=== PATIENT | female | born 1990 | race Hispanic/Latino ===

== ENCOUNTER 2021-04-14 10:23 | Emergency (ER) | payer OTHER ==
--- OUTSIDE RECORDS SUMMARY | 2021-04-14 10:26 | XMS REPORT | Continuity of Care Document ---
:1990 Author Organization [facility] t Address [address] [place] [address] Care Team Providers Name Role Phone DAYDAY, JANNA Primary Care Physician Unavailable PATRICK Attending Clinician Unavailable TAMAR Attending Clinician Unavailable Kike MASTERSON Attending Clinician Unavailable Ijeoma GA Attending Clinician Unavailable Tamar YO Attending Clinician DAYDAY, JANNA Attending Clinician Unavailable ANUSHKA Attending Clinician Unavailable Campos ABEL Attending Clinician Unavailable ELEN Attending Clinician Unavailable ELEN Attending Clinician Unavailable PATRICK Admitting Clinician Unavailable JANNA NAYLOR Admitting Clinician Unavailable TAMAR Admitting Clinician Unavailable Payers Payer Name Policy Type Policy Number Effective Date Expiration Date S andrew [employer] CHO[employer] POS [id number] 2018 00:00:00 II Problems This patient has no known problems. Allergies, Adverse Reactions, Alerts Allergy Allergy Status Severity Reaction(s) Onset Inactive Treating Comm ents Source Name Type Date Date Clinician NO KNOWN Drug Active [facility] ALLERGIE Class ity of S [facility] Medications This patient has no known medications. Procedures This patient has no known procedures. Encounters Start End Encounter Admission Attending Care Care Encounter Source Date/Time Date/Time Type Type Clinicians Facility Department ID 2020-12-26 Outpatient LENA NGUYEN [facility] [id number] Univers 23:43:27 JULIO CESAR eda [facility] 2020-12-[address] [facility] [id number] Univers 23:42:30 ity [facility] 2020-12-24 Outpatient P [facility] [id number] Univers 18:17:26 ity [facility] 2021-01-12 2021-01-12 Outpatient R TAMAR, [facility] [id number] Univers 08:30:00 08:30:00 NICCI [id number] ity [facility] 2021-01-12 2021-01-12 [facility] [id number] Univers 08:30:00 08:30:00 NICCI [facility] 2020-10-19 2020-10-19 [facility] [id number] Univers 13:00:00 13:00:00 JULIO CESAR [id number] [facility] 2020-07-14 2020-07-[address] [facility] [id number] Univers 11:00:00 11:00:00 [id number] [facility] 2020-07-14 2020-07-14 [facility] [id number] Univers 11:00:00 11:00:00 ARGENTINA [facility] 2020-07-08 2020-07-[address] [facility] [id number] Univers 13:30:00 13:30:00 JULIO CESAR [facility] 2020-07-08 2020-07-[address] [facility] [id number] Univers 10:00:00 10:00:00 JULIO CESAR [id number] [facility] 2020-06-30 2020-06-[address] [facility] [id number] Univers 09:00:00 09:00:00 [id number] ity [facility] 2020-06-30 2020-06-[address] [facility] [id number] Univers 09:00:00 [facility]-06[facility] [facility] [id number] Univers 09:00:00 09:00:00 [id number] ity [facility] 2020-06-04 2020-06-[address] [facility] [id number] Univers 08:15:00 08:15:00 [id number] ity [facility] 2020-06-04 2020-06-[address] [facility] [id number] Univers 08:15:00 08:15:00 [facility] [facility] 2020-05-26 2020-05-[address] [facility] [id number] Univers 11:00:00 11:00:00 [id number] ity [facility] 2020-05-19 2020-05-[address] [facility] [id number] Univers 11:00:00 11:00:00 [id number] [facility] 2020-05-13 2020-05-13 [facility] [id number] Univers 13:30:00 13:30:00 RASHEEDA [facility] 2020-05-13 2020-05-[address] [facility] [id number] Univers 10:15:00 10:15:00 JULIO CESAR [id number] [facility] 2020-05-13 2020-05-13 [facility] [id number] Univers 10:15:00 10:15:00 JULIO CESAR [facility] 2020-04-23 2020-04-[address] [facility] [id number] Univers 13:00:00 13:00:00 [id number] [facility] 2020-04-23 2020-04-[address] [facility] [id number] Univers 13:00:00 13:00:00 RASHEEDA [facility] 2020-04-15 2020-04-[address] [facility] [id number] Univers 09:45:00 09:45:00 JULIO CESAR [id number] [facility] 2020-04-15 2020-04-15 [facility] [id number] Univers 09:45:00 09:45:00 JULIO CESAR [facility] 2020-01-13 2020-01-13 [facility] [id number] 09:41:05 10:13:01 Visit Nicci Lopez [id number] Ivone [id number] abdielmo [id number] [address] 2020-01-13 2020-01-[address] [facility] [id number] Univers 09:30:00 09:30:00 NICCI [id number] [facility] 2020-01-13 2020-01-[address] [facility] [id number] Univers 09:30:00 09:30:00 NICCI [facility] 2019-09-05 2019-09-[address] [facility] [id number] Univers 08:20:00 08:20:00 [facility] 2019-07-12 2019-07-[address] [facility] [id number] Univers 14:45:00 14:45:00 NICCI [id number] [facility] 2019-07-12 2019-07-[address] [facility] [id number] Univers 14:45:00 14:45:00 NICCI [facility] 2019-07-09 2019-07-[address] [facility] [id number] Univers 14:00:00 14:00:00 NICCI [id number] [facility] 2019-07-09 2019-07-[address] [facility] [id number] Univers 14:00:00 14:00:00 NICCI [facility] 2019-06-24 2019-06-[address] [facility] [id number] Univers 10:30:00 10:30:00 [facility] 2019-06-14 2019-06-[address] [facility] [id number] Univers 10:00:00 10:00:00 [id number] [facility] 2019-06-14 2019-06-14 Outpatient R BRADEN NAYLOR [facility] [id number] Univers 10:00:00 10:00:00 ity [facility] 2019-06-11 2019-06-11 Outpatient R BRADEN NAYLOR [facility] [id number] Univers 13:30:00 13:30:00 [id number] ity [facility] 2019-06-11 2019-06-11 Outpatient R BRADEN NAYLOR [facility] [id number] Univers 13:30:00 13:30:00 ity [facility] 2019-06-03 2019-06-[address] [facility] [id number] Univers 11:15:00 11:15:00 NICCI ity [facility] 2019-06-03 2019-06-[address] [facility] [id number] Univers 11:15:00 11:15:00 NICCI [facility] 2019-05-22 2019-05-22 Outpatient R BRADEN NAY[facility] [facility] [id number] Univers 15:45:00 15:45:00 [id number] [facility] 2019-05-22 2019-05-22 Outpatient R BRADEN NAY[facility] [id number] Univers 15:45:00 15:45:00 ity [facility] 2019-05-20 2019-05-20 Outpatient R BRADEN NAYLOR [facility] [id number] Univers 09:15:00 09:15:00 [id number] [facility] 2019-05-20 2019-05-20 Outpatient R BRADEN NAY[facility]OR [facility] [id number] Univers 09:15:00 09:15:00 ity [facility] 2019-05-06 2019-05-[address] [facility] [id number] Univers 11:15:00 11:15:00 NICCI [facility] 2019-05-06 2019-05-[address] [facility] [id number] Univers 11:15:00 11:15:00 NICCI [facility] 2019-04-26 2019-04-[address] [facility] [id number] Univers 13:00:00 13:00:00 ity [facility] 2019-04-22 2019-04-22 Outpatient R BRADEN NAYLOR [facility] [id number] Univers 15:30:00 15:30:00 ity [facility] 2019-03-25 2019-03-[address] [facility] [id number] Univers 10:45:00 11:29:55 NICCI [facility] 2019-03-06 2019-03-[address] [facility] [id number] Univers 11:00:00 11:00:00 VIOLETA ity o [facility] 2019-03-01 2019-03-[address] [facility] [id number] Univers 15:00:00 16:05:36 SENDDUSTIN [facility] 2019-02-25 2019-02-25 Outpatient R BRADEN NAYLOR [facility] [id number] Univers 13:45:00 14:14:42 ity [facility] 2019-01-28 2019-01-[address] [facility] [id number] Univers 09:45:00 11:20:09 NICCI [facility] 2019-01-22 2019-01-[address] [facility] [id number] Univers 14:00:00 14:24:59 ity [facility] 2018-12-27 2018-12-27 Outpatient R BRADEN NAYLOR [facility] [id number] Univers 11:30:00 12:21:33 ity [facility] 2018-12-26 2018-12-[address] [facility] [id number] Univers 07:25:06 23:59:00 NICCI [facility] 2018-12-21 2018-12-21 Outpatient R BRADEN NAYLOR [facility] [id number] Univers 15:30:00 16:16:39 ity [facility] 2018-12-14 2018-12-14 Outpatient P FARIBA MYRICK [facility] [id number] Univers 13:00:00 14:02:22 [facility] 2018-12-07 2018-12-07 [facility] [id number] Univers 07:30:00 07:30:00 NICCI ity [facility] 2018-12-03 2018-12-03 Outpatient Karina [facility] [id number] Univers 07:45:00 07:45:00 [facility] 2018-11-29 2018-11-29 Outpatient Karina NAYLOR BRADEN [facility] [id number] Univers 11:30:00 12:35:52 [facility] 2018-11-16 2018-11-[address] [facility] [id number] Univers 10:57:38 23:59:00 [facility] 2018-10-31 2018-10-31 Outpatient Karina [facility] [id number] Univers 14:00:00 15:17:13 [facility] Results This patient has no known results.
[2021-04-14 11:09] LABS: Absolute Lymphocytes (CBC) 1.9 K/uL (0.7-4.9); Lymphocytes % 21.8 % (15.3-44.8); MPV 8.4 fL (7.6-11.3)
[2021-04-14 11:10] LABS: Urine Blood 3+ (Negative); Urine Glucose Negative (Negative); Urine Protein Trace (Negative); Urine Specific Gravity 1.025 (1.005-1.030); Urine pH 6.5 (5.0-7.0)
[2021-04-14 11:40] LABS: Potassium 3.6 mmol/L (3.5-5.1)
--- NOTE | 2021-04-14 13:13 | RAD REPORT ---
EXAM DESCRIPTION: US - 1St Trimest Single 1St Fetus - 04/14/2021 12:46 pm CLINICAL HISTORY: A spotting since last night COMPARISON: No comparisons FINDINGS: Single IUP identified. heart rate measured at 165 beats/min. The gestational sac tk sures 3.4 cm. pole identified. The crown-rump length measures 1.6 cm which is consistent with 8 weeks 0 day. Small subchorionic hemorrhage is present. This occupies less than 25% of the surface ar ea of the gestational sac. Both ovaries were visualized. The right ovary measures 2.6 x 1.6 x 3.1 cm with volume of 6.7 cc. The left ovary measures 3.6 x 2.3 x 3.3 cm with volume of 14.7 cc. Both ovarie s have vascular flow. IMPRESSION: Single viable IUP with positive heart tones measuring 8 week 2 day by CRL with ZEKE of 11/22/2021. Small subchorionic hemorrhage which is typically of little clinical significance. Can reassess on follow-up examinations.
[2021-04-14 13:42] LABS: Urine Specific Gravity/Preg 1.025 (1.005-1.030)
--- NOTE | 2021-04-14 13:44 | EDPHYS ---
Physician Documentation [facility] Name: Antoinette White Age: 30 yrs Sex: Female : 1990 Arrival Date: 04/14/2021 Time: 10:25 Bed 20 Private MD: ED Physician Noah Gibbons HPI: 04/14 13:51 This 30 yrs old Female presents to ER via Ambulatory with complaints of kdr Vaginal Bleeding, + Preg <12wks. 13:51 The patient presents to the emergency department with vaginal bleeding, that is light, kdr described as spotting, with no clots, reports using 0 pads or tampons per day. The estimated gestational age is 12 weeks. course: care: private OB physician, Leakage of Fluid: none appreciated, Ultrasound: the patient had an ultrasound, Risk/complications: no obvious risks or complications are appreciated. Previous pregnancies: in previous pregnancies patient has had. Previous pregnancies: in previous pregnancies patient has had vaginal delivery, no complications. Associated signs and symptoms: The patient has no apparent associated signs or symptoms. The patient has not experienced similar symptoms in the past. The patient has been recently seen by a physician: the patient's primary care provider. Last intercourse was yesterday morning. She denied start spotting until last evening. Historical: - Allergies: 10:43 No Known Allergies; ab2 - Home Meds: 10:43 None [Active]; ab2 - PMHx: 10:43 None; ab2 - Immunization history:: Adult Immunizations up to date, Client reports receiving the 2nd dose of the Covid vaccine. - Social history:: Smoking status: Patient denies any tobacco usage or history of. Patient/guardian denies using alcohol, street drugs. ROS: 13:51 Constitutional: Negative for fever, chills, and weight loss, Eyes: Negative for injury, kdr pain, redness, and discharge, ENT: Negative for injury, pain, and discharge, Neck: Negative for injury, pain, and swelling, Cardiovascular: Negative for chest pain, palpitations, and edema, Respiratory: Negative for shortness of breath, cough, wheezing, and pleuritic chest pain, Abdomen/GI: Negative for abdominal pain, nausea, vomiting, diarrhea, and constipation, Back: Negative for injury and pain, MS/Extremity: Negative for injury and deformity, Skin: Negative for injury, rash, and discoloration, Neuro: Negative for headache, weakness, numbness, tingling, and seizure activity. Psych: Negative for depression, anxiety, suicide ideation, homicidal ideation, and hallucinations, Allergy/Immunology: Negative for hives, rash, and allergies, Endocrine: Negative for neck swelling, polydipsia, polyuria, polyphagia, and marked weight changes, Hematologic/Lymphatic: Negative for swollen nodes, abnormal bleeding, and unusual bruising. 13:51 : Positive for vaginal bleeding, Negative for injury or acute deformity, urinary symptoms, urinary frequency, small amounts, hematuria, pelvic pain, flank pain, burning with urination, difficulty urinating, bladder incontinence, foul smelling urine, vaginal discharge, vaginal itching, menstrual abnormality, missed period. Exam: 13:51 Constitutional: This is a well developed, well nourished patient who is awake, alert, kdr and in no acute distress. Head/Face: Normocephalic, atraumatic. Eyes: Pupils equal round and reactive to light, extra-ocular motions intact. Lids and lashes normal. Conjunctiva and sclera are non-icteric and not injected. Cornea within normal limits. Periorbital areas with no swelling, redness, or edema. Neck: Trachea midline, no thyromegaly or masses palpated, and no cervical lymphadenopathy. Supple, full range of motion without nuchal rigidity, or vertebral point tenderness. No Meningismus. Chest/axilla: Normal chest wall appearance and motion. Nontender with no deformity. No lesions are appreciated. Cardiovascular: Regular rate and rhythm with a normal S1 and S2. No gallops, murmurs, or rubs. Normal PMI, no JVD. No pulse deficits. Respiratory: Lungs have equal breath sounds bilaterally, clear to auscultation and percussion. No rales, rhonchi or wheezes noted. No increased work of breathing, no retractions or nasal flaring. Abdomen/GI: Soft, non-tender, with normal bowel sounds. No distension or tympany. No guarding or rebound. No evidence of tenderness throughout. Back: No spinal tenderness. No costovertebral tenderness. Full range of motion. Skin: Warm, dry with normal turgor. Normal color with no rashes, no lesions, and no evidence of cellulitis. MS/ Extremity: Pulses equal, no cyanosis. Neurovascular intact. Full, normal range of motion. Neuro: Awake and alert, GCS 15, oriented to person, place, time, and situation. Cranial nerves II-XII grossly intact. Motor strength 5/5 in all extremities. Sensory grossly intact. Cerebellar exam normal. Normal gait. Psych: Awake, alert, with orientation to person, place and time. Behavior, mood, and affect are within normal limits. Vital Signs: 10:41 BP 141 / 93; Pulse 96; Resp 16; Temp 98.5(O); Pulse Ox 100% on R/A; Weight 92.99 kg; ab2 Height 5 ft. 1 in. (154.94 cm); Pain 0/10; 13:00 BP 138 / 84; Pulse 80; Resp 16; Temp 98.6; Pain 0/10; cb5 14:45 BP 136 / 83; Pulse 81; Resp 16; Temp 98.4; Pulse Ox 98% ; Pain 0/10; cb5 10:41 Body Mass Index 38.73 (92.99 kg, 154.94 cm) ab2 MDM: 13:43 Patient medically screened. kdr 13:51 Data reviewed: vital signs, nurses notes, lab test result(s), radiologic studies. kdr Counseling: I had a detailed discussion with the patient and/or guardian regarding: the historical points, exam findings, and any diagnostic results supporting the discharge/admit diagnosis, lab results, radiology results, the need for outpatient follow up. Response to treatment: the patient's symptoms have markedly improved after treatment, patient is well hydrated. 04/14 10:44 Order name: Abo/rh Typing; Complete Time: 12:41 kdr 04/14 10:44 Order name: Basic Metabolic Panel; Complete Time: 12:41 kdr 04/14 10:44 Order name: CBC with Diff; Complete Time: 12:41 kdr 04/14 10:44 Order name: Quantitative Hcg; Complete Time: 12:41 kdr 04/14 11:10 Order name: Urine Dipstick-Ancillary; Complete Time: 12:41 EDMS 04/14 11:12 Order name: Urine --Ancillary (enter results); Complete Time: 13:44 bd 04/14 10:44 Order name: IV Saline Lock; Complete Time: 11:04 kdr 04/14 10:44 Order name: Labs collected and sent; Complete Time: 11:04 kdr 04/14 10:44 Order name: NPO; Complete Time: 11:04 kdr 04/14 10:44 Order name: Urine Dipstick-Ancillary (obtain specimen); Complete Time: 11: kdr 04/14 12:06 Order name: 1St Trimest Single 1St Fetus; Complete Time: 13:40 EDMS Administered Medications: 13:53 Drug: NS 0.9% 500 ml Route: IV; Rate: bolus; Site: right antecubital; cb5 Disposition Summary: 04/14/21 13:43 Discharge Ordered Location: Home kdr Problem: new kdr Symptoms: have improved kdr Condition: Stable kdr Diagnosis - Threatened kdr Followup: kdr - With: Private Physician - When: 2 - 3 days - Reason: If symptoms return, Further diagnostic work-up, Recheck today's complaints, Continuance of care, Re-evaluation by your physician Discharge Instructions: - Discharge Summary Sheet kdr - Threatened Miscarriage kdr - Vaginal Bleeding During , First Trimester kdr Forms: - Medication Reconciliation Form kdr - Thank You Letter kdr Signatures: Dispatcher [employer] Noah Ruff MD MD kdr Holley Nobles, RN RN cb5 Chadd Dennison2 Corrections: (The following items were deleted from the chart) 12:06 11:31 Transvaginal Study (Probe)+US.VENICE ordered. WILIAN CEDENO
--- NOTE | 2021-04-14 13:44 | ER ---
Nurse's Notes [facility] Name: Antoinette White Age: 30 yrs Sex: Female : 1990 Arrival Date: 04/14/2021 Time: 10:25 Bed 20 Private MD: Diagnosis: Threatened Presentation: 04/14 10:41 Chief complaint: Patient states: "I have been spotting since yesterady afternoon. I ab2 called Dr. Cornelius and he told me to come here to be checked out. I am 8 weeks as of today.". Coronavirus screen: Vaccine status: Patient reports receiving the 2nd dose of the covid vaccine. Client denies travel out of the [place] in the last 14 days. At this time, the client does not indicate any symptoms associated with coronavirus-19. Ebola Screen: Patient negative for fever greater than or equal to 101.5 degrees Fahrenheit, and additional compatible Ebola Virus Disease symptoms Patient denies exposure to infectious person. Patient denies travel to an Ebola-affected area in the 21 days before illness onset. No symptoms or risks identified at this time. Initial Sepsis Screen: Does the patient meet any 2 criteria? No. Patient's initial sepsis screen is negative. Does the patient have a suspected source of infection? No. Patient's initial sepsis screen is negative. Risk Assessment: Do you want to hurt yourself or someone else? Patient reports no desire to harm self or others. Onset of symptoms was April 13, 2021 at 10:00. 10:41 Method Of Arrival: Ambulatory ab2 10:41 Acuity: MELVA 3 ab2 Triage Assessment: 10:44 General: Appears in no apparent distress. comfortable, Behavior is calm, cooperative, ab2 appropriate for age. Pain: Denies pain. : Reports vaginal bleeding that is bright red, spotty. Historical: - Allergies: 10:43 No Known Allergies; ab2 - Home Meds: 10:43 None [Active]; ab2 - PMHx: 10:43 None; ab2 - Immunization history:: Adult Immunizations up to date, Client reports receiving the 2nd dose of the Covid vaccine. - Social history:: Smoking status: Patient denies any tobacco usage or history of. Patient/guardian denies using alcohol, street drugs. Screenin:00 Abuse screen: Denies threats or abuse. Denies injuries from another. Nutritional cb5 screening: No deficits noted. Tuberculosis screening: No symptoms or risk factors identified. Fall Risk None identified. Assessment: 11:00 General: Appears in no apparent distress. comfortable, Behavior is calm, cooperative, cb5 appropriate for age. Pain: Denies pain. Neuro: No deficits noted. Cardiovascular: No deficits noted. Respiratory: No deficits noted. GI: No deficits noted. : No deficits noted. EENT: No deficits noted. Derm: No deficits noted. Musculoskeletal: No deficits noted. 11:00 Obstetrical Assessment: General assessment:. cb5 12:00 Reassessment: Patient and/or family updated on plan of care and expected duration. Pain cb5 level reassessed. 13:00 Reassessment: Patient and/or family updated on plan of care and expected duration. Pain cb5 level reassessed. 15:05 General: pt finished N.S I.V. fluids. pt now discharged home. cb5 Vital Signs: 10:41 BP 141 / 93; Pulse 96; Resp 16; Temp 98.5(O); Pulse Ox 100% on R/A; Weight 92.99 kg; ab2 Height 5 ft. 1 in. (154.94 cm); Pain 0/10; 13:00 BP 138 / 84; Pulse 80; Resp 16; Temp 98.6; Pain 0/10; cb5 14:45 BP 136 / 83; Pulse 81; Resp 16; Temp 98.4; Pulse Ox 98% ; Pain 0/10; cb5 10:41 Body Mass Index 38.73 (92.99 kg, 154.94 cm) ab2 Vitals: 11:30 Heart Tones M.D. aware, that doppler isnt available. . cb5 ED Course: 10:25 Patient arrived in ED. rg4 10:43 Triage completed. ab2 10:43 Noah Gibbons MD is Attending Physician. kdr 10:44 Arm band placed on right wrist. ab2 10:55 Inserted saline lock: 22 gauge in right antecubital area, using aseptic technique. ll1 Blood collected. 11:11 Holley Nobles, RN is Primary Nurse. cb5 11:11 Abo/rh Typing Sent. cb5 11:11 Basic Metabolic Panel Sent. cb5 11:11 CBC with Diff Sent. cb5 11:19 Patient has correct armband on for positive identification. Bed in low position. Side cb5 rails up X 1. 12:45 1[address] Trimest Single 1St Fetus In Process Unspecified. EDMS 15:10 IV discontinued. cb5 Administered Medications: 13:53 Drug: NS 0.9% 500 ml Route: IV; Rate: bolus; Site: right antecubital; cb5 Outcome: 13:43 Discharge ordered by . kdr 15:05 Discharged to home ambulatory, with family. cb5 15:05 Condition: stable 15:05 Discharge instructions given to patient, family. 15:23 Patient left the ED. cb5 Signatures: Dispatcher [employer] EDMS Noah Gibbons MD MD kdr Garcia, Rubi rg4 Maged Rizvi RN RN ll1 Holley Nobles RN RN cb5 Chadd Dennison
[2021-04-14] MEDS ORDERED: NA CHLORIDE 0.9% 500 ML ONE (13:52)
[2021-04-14 15:45] VITALS: BP 136/83; TEMP 98.4; O2SAT 98
== END 2021-04-14 15:23 | disposition home or self-care (01) ==
LOC: ER 10:23
DX: O20.0 Threatened abortion (principal); Z3A.12 12 weeks gestation of pregnancy
CPT/HCPCS: 85025; 80048; 36415; 86900; 81025; 86901; 84702; 81003; 76801; 99284; J7040

== ENCOUNTER 2021-11-18 04:13 | Inpatient (IN) | payer OTHER ==
[2021-11-16 17:24] LABS: SARS-CoV-2 Antigen Rapid Res Negative (Negative)
[~2021-11-18 04:13] MED LIST: BUTORPHANOL 1 MG/ML INJ IV PRN; CARBOPROST TROME 250 MCG/ML IM PRN; METHYLERGONOVINE 0.2MG/ML AMP IM PRN; OXYTOCIN/LR 20 UNIT/1,000 ML BAG IV SCH; PROMETHAZINE INJ 25 MG/ML AMP IM PRN; Ringers Lactate 1,000 ML IV PRN; Ringers Lactate 1,000 ML IV SCH
--- OUTSIDE RECORDS SUMMARY | 2021-11-18 04:16 | XMS REPORT | Continuity of Care Document ---
:1990 Author Organization [facility] t Address [address] [place] [address] Care Team Providers Name Role Phone BRADEN NAYLOR Primary Care Physician Unavailable JULIO CESAR NGUYEN Attending Clinician Unavailable NICCI LOYA Attending Clinician Unavailable ARGENTINA MASTERSON Attending Clinician Unavailable RASHEEDA GA Attending Clinician Unavailable Nicci Loya PA-C Attending Clinician BRADEN NAYOLR Attending Clinician Unavailable VIOLETA REVELES Attending Clinician Unavailable NELL ABEL Attending Clinician Unavailable FARIBA MYRICK Attending Clinician Unavailable FARIBA MYRICK Attending Clinician Unavailable JULIO CESAR NGUYEN Admitting Clinician Unavailable BRADEN NAYLOR Admitting Clinician Unavailable NICCI LOYA Admitting Clinician Unavailable Payers Payer Name Policy Type Policy Number Effective Date Expiration Date S andrew [employer] CHO[employer] POS [id number] 2018 00:00:00 II Problems This patient has no known problems. Allergies, Adverse Reactions, Alerts Allergy Allergy Status Severity Reaction(s) Onset Inactive Treating Comm ents Source Name Type Date Date Clinician NO KNOWN Drug Active [facility] Medications This patient has no known medications. Procedures This patient has no known procedures. Encounters Start End Encounter Admission Attending Care Care Encounter Source Date/Time Date/Time Type Type Clinicians Facility Department ID 2020-12-26 Outpatient PATRICK [facility] SPL [id number] Univers 23:43:27 JULIO CESAR eda [facility] 2020-12-26 Emergency [facility] [id number] Univers 23:42:[address] [facility] 2020-12-24 Outpatient P [facility] MICHELLE [id number] Univers 18:17:[address] [facility] 2021-01-12 2021-01-12 Outpatient R TAMAR [facility] [id number] Univers 08:30:00 08:30:[id number] [facility] 2021-01-12 2021-01-12 [facility] [facility] [id number] Univers 08:30:00 08:30:[address] [facility] 2020-10-19 2020-10-19 [facility] [id number] Univers 13:00:00 13:00:[id number] [facility] 2020-07-14 2020-07-14 Outpatient R [facility] [id number] Univers 11:00:00 11:00:[id number] [facility] 2020-07-14 2020-07-14 [facility] [id number] Univers 11:00:00 11:00:[address] [facility] 2020-07-08 2020-07-08 Outpatient Karina NGUYEN [facility] [id number] Univers 13:30:00 13:30:[address] [facility] 2020-07-08 2020-07-08 Outpatient Karina NGUYEN [facility] [id number] Univers 10:00:00 10:00:[id number] [facility] 2020-06-30 2020-06-30 Outpatient R [facility] [id number] Univers 09:00:00 09:00:[id number] [facility] 2020-06-30 2020-06-30 Outpatient R [facility] [id number] Univers 09:00:00 09:00:00 ity [facility] 2020-06-11 2020-06-11 Outpatient R [facility] [id number] Univers 09:00:00 09:00:00 [id number] ity [facility] 2020-06-04 2020-06-04 Outpatient R [facility] [id number] Univers 08:15:00 08:15:00 [id number] ity [facility] 2020-06-04 2020-06-04 [facility] [id number] Univers 08:15:00 08:15:[address] [facility] 2020-05-26 2020-05-26 Outpatient [facility] [id number] Univers 11:00:00 11:00:00 [id number] ity [facility] 2020-05-19 2020-05-19 Outpatient R [facility] [id number] Univers 11:00:00 11:00:00 [id number] [facility] 2020-05-13 2020-05-13 [facility] [id number] Univers 13:30:00 13:30:[address] [facility] 2020-05-13 2020-05-13 [facility] [id number] Univers 10:15:00 10:15:00 JUL[facility]ESAR [id number] [facility] 2020-05-13 2020-05-13 [facility] [id number] Univers 10:15:00 10:15:[address] [facility] 2020-04-23 2020-04-23 Outpatient R [facility] [id number] Univers 13:00:00 13:00:00 [id number] ity [facility] 2020-04-23 2020-04-23 [address] [facility] [id number] Univers 13:00:00 13:00:[address] [facility] 2020-04-15 2020-04-15 [facility] [id number] Univers 09:45:00 09:45:[id number] [facility] 2020-04-15 2020-04-15 Outpatient Karina NGUYEN [facility] [id number] Univers 09:45:00 09:45:[address] [facility] 2020-01-13 2020-01-13 [facility] [id number] 09:41:05 10:13:01 Visit Nicci Lopez [id number] Ivone [id number] Laci [id number] [address] 2020-01-13 2020-01-13 Outpatient Karina LOYA [facility] [id number] Univers 09:30:00 09:30:[id number] [facility] 2020-01-13 2020-01-13 Outpatient Karina LOYA [facility] [id number] Univers 09:30:00 09:30:[address] [facility] 2019-09-05 2019-09-05 Outpatient [facility] [id number] Univers 08:20:00 08:20:[id number] [facility] 2019-07-12 2019-07-12 Outpatient R TAMAR [facility] [id number] Univers 14:45:00 14:45:[id number] [facility] 2019-07-12 2019-07-12 Outpatient Karina LOYA [facility] [id number] Univers 14:45:00 14:45:[address] [facility] 2019-07-09 2019-07-09 Outpatient R TAMAR [facility] [id number] Univers 14:00:00 14:00:[id number] [facility] 2019-07-09 2019-07-09 Outpatient R TAMAR [facility] [id number] Univers 14:00:00 14:00:[address] [facility] 2019-06-24 2019-06-24 Outpatient BRADEN GUEVARA [facility] [id number] Univers 10:30:00 10:30:[address] [facility] 2019-06-14 2019-06-14 Outpatient R [facility] [id number] Univers 10:00:00 10:00:00 [id number] ity [facility] 2019-06-14 2019-06-14 Outpatient R BRADEN NAYLOR [facility] [id number] Univers 10:00:00 10:00:00 ity [facility] 2019-06-11 2019-06-11 Outpatient R BRADEN NAYLOR [facility] [id number] Univers 13:30:00 13:30:00 [id number] ity [facility] 2019-06-11 2019-06-11 Outpatient R BRADEN NAYLOR [facility] [id number] Univers 13:30:00 13:30:00 ity [facility] 2019-06-03 2019-06-03 Outpatient R RANDALALEXANDERLAVERN [facility] [id number] Univers 11:15:00 11:15:00 NICCI ity [facility] 2019-06-03 2019-06-03 Outpatient R TAMAR [facility] [id number] Univers 11:15:00 11:15:00 [facility] 2019-05-22 2019-05-22 Outpatient R BRADEN NAYLOR [facility] [id number] Univers 15:45:00 15:45:00 [id number] [facility] 2019-05-22 2019-05-22 Outpatient R BRADEN NAYLOR [facility] [id number] Univers 15:45:00 15:45:00 ity [facility] 2019-05-20 2019-05-20 Outpatient R BRADEN NAYLOR [facility] [id number] Univers 09:15:00 09:15:00 [id number] ity [facility] 2019-05-20 2019-05-20 Outpatient R BRADEN NAYLOR [facility] [id number] Univers 09:15:00 09:15:00 ity [facility] 2019-05-06 2019-05-06 Outpatient R RANDALALEXANDERLAVERN [facility] [id number] Univers 11:15:00 11:15:00 NICCI ity [facility] 2019-05-06 2019-05-06 Outpatient R TAMAR [facility] [id number] Univers 11:15:00 11:15:00 NICCI eda [facility] 2019-04-26 2019-04-26 Outpatient P [facility] [id number] Univers 13:00:00 13:00:00 ity [facility] 2019-04-22 2019-04-22 Outpatient R BRADEN NAYLOR [facility] [id number] Univers 15:30:00 15:30:00 ity [facility] 2019-03-25 2019-03-25 Outpatient R JUSTICELAVERN [facility] [id number] Univers 10:45:00 11:29:[address] [facility] 2019-03-06 2019-03-06 Outpatient R ANUSHKA [facility] [id number] Univers 11:00:00 11:00:00 NOBLEIRINEO iteda o f [facility] 2019-03-01 2019-03-01 Outpatient R COLTEN [facility] [id number] Univers 15:00:00 16:05:[address] [facility] 2019-02-25 2019-02-25 Outpatient R BRADEN NAYLOR [facility] [id number] Univers 13:45:00 14:14:42 ity [facility] 2019-01-28 2019-01-28 Outpatient R JUSTICELAVERN [facility] [id number] Univers 09:45:00 11:20:[address] [facility] 2019-01-22 2019-01-22 Outpatient R BRADEN NAYLOR [facility] [id number] Univers 14:00:00 14:24:59 ity [facility] 2018-12-27 2018-12-27 Outpatient R BRADEN NAYLOR [facility] [id number] Univers 11:30:00 12:21:33 ity [facility] 2018-12-26 2018-12-26 Outpatient R JUSTICELAVERN [facility] [id number] Univers 07:25:06 23:59:[address] [facility] 2018-12-21 2018-12-21 Outpatient R BRADEN NALYOR [facility] [id number] Univers 15:30:00 16:16:39 ity [facility] 2018-12-14 2018-12-14 Outpatient P FARIBA MYRICK [facility] [id number] Univers 13:00:00 14:02:[address] [facility] 2018-12-07 2018-12-07 Outpatient Karina LOYA [facility] [id number] Univers 07:30:00 07:30:[address] [facility] 2018-12-03 2018-12-03 Outpatient Karina NAYLOR BRADEN [facility] [id number] Univers 07:45:00 07:45:00 [facility] 2018-11-29 2018-11-29 Outpatient Karina NAYLOR BRADEN [facility] [id number] Univers 11:30:00 12:35:52 [facility] 2018-11-16 2018-11-16 Outpatient BRADEN GUEVARA [facility] [id number] Univers 10:57:38 23:59:00 [facility] 2018-10-31 2018-10-31 Outpatient Karina NAYLOR [facility] [id number] Univers 14:00:00 15:17:[address] [facility] Results This patient has no known results.
[2021-11-18 05:52] VITALS: BMI 40.6
[2021-11-18 06:43] LABS: Absolute Lymphocytes (CBC) 2.4 K/uL (0.7-4.9); Hematocrit 34.2 % (36.0-45.0); Lymphocytes % 27.3 % (15.3-44.8); MCV 76.8 fL (80-100); MPV 9.6 fL (7.6-11.3); RBC Red Blood Cell Count 4.46 M/uL (3.86-4.86)
[2021-11-18 06:56] LABS: Specific Gravity 1.014 (1.005-1.030); Urine Bacteria <20 /HPF (<20); Urine Bilirubin NEGATIVE (Negative); Urine Blood Negative (Negative); Urine Clarity Clear (Clear); Urine Color Light-Yellow (Yellow); Urine Glucose NEGATIVE (Negative); Urine Mucus Slight /HPF (None Seen); Urine Protein TRACE (Negative); Urine RBC <5 /HPF (None Seen); Urine Urobilinogen Normal (Normal); Urine pH 6.5 (5.0-7.0)
--- NOTE | 2021-11-18 09:07 | PREOPHP ---
Date of Admission: 11/18/2021 History Of Present Illness: Angely Patel is a 31-year-old, 4, para 2, 39 weeks, followed an tepartum, noted to have a history of diabetes, although during this , she seems to have not had diabetes, was 3 cm in the office, is now 3.5 cm, vertex well applied at -1 station. Rupture of m embranes, clear fluid. Labor talk given. Anticipate delivery sometime later today. Family History: Noncontributory. Past Medical History: No serious illnesses. Past Surgical History: No surgeries. Allergies: NO ALLERGIES. Medications: No medicines prior to admission other than vitamins and iron. Social History: Does not smoke. Physical Examination: HEENT: Clear. Pupils equal, round, and reactive to light and accommodation. Conjunctivae well perf used. No oral, lingual, or buccal lesions. Chest and Lungs: Clear. Heart: Without murmurs, thrills, heaves, or rubs. Breasts: Without masses on previous visits. Abdomen: Obese. Extremities: Clear. Pelvic: As stated, 3.5 cm, 70% effaced, vertex -1. Rupture of membranes, clear fluid. Assessment: The patient is stating she wants to try to go natural if at all possible, and of course that is up to her. She knows that once she gets to 5 to 6 cm, will probably progress very rapidly thereafter. She is Rh positive, immune to rubella, negative strep, negative COVID. BRENDEN/ELY Voice ID: [id number]
[2021-11-18] MEDS ORDERED: LIDOCAINE 1% MPF 30 ML VIAL ONE (09:35)
[2021-11-18] MEDS ORDERED: IBUPROFEN 600 MG TAB PO PRN (10:38)
[2021-11-18] MEDS ORDERED: DIPHENHYDRAMINE 25 MG TAB/CAP PO PRN (10:38)
[2021-11-18] MEDS ORDERED: BISACODYL 10 MG RECTAL SUPP RC PRN (10:38)
[2021-11-18] MEDS ORDERED: Oxycodone HCl/Acetaminophen 1 TAB TAB PO PRN ×2 (10:38)
[2021-11-18] MEDS ORDERED: DOCUSATE NA/SENNA CONC 1 TAB PO PRN (10:38)
[2021-11-18] MEDS ORDERED: ACETAMINOPHEN 500 MG TAB PO PRN (10:38)
[2021-11-18] MEDS ORDERED: OXYTOCIN/LR 20 UNIT/1,000 ML BAG IV SCH (11:00)
--- NOTE | 2021-11-18 11:04 | OP ---
Surgeon: Bird Cornelius MD Indications: Antoinette White is a 31-year-old, 4, para 2 at 39 weeks for induction. Rh posit rajani, immune to rubella, negative COVID, negative strep. Procedure In Detail: This morning was 3.5 cm, gianni regularly. FHTs normal and reactive. Rup ture of membranes, clear fluid. During the first stage, she received Stadol 1 mg IV, Phenergan 25 mg IM. Went rapidly to complete second stage in 15 minutes to 20 minutes. Spontaneous vaginal deliver y of a 6 pounds 12-ounce male infant, Apgars 9 and 9. No episiotomy. No lacerations worthy of sutur ing. Schultze delivery of the placenta, which was inspected and noted to be intact and normal. Less than 250 cc blood loss. Patient tolerated all procedures well. Final Diagnoses: Term intrauterine at 39 weeks, labor induction, vaginal delivery. BRENDEN/ELY Voice ID: [id number] Report ID: [id number]
[2021-11-18] MEDS ORDERED: MUPIROCIN 2% OINT 22GM TUBE TOP SCH (21:00)
[2021-11-19 06:06] VITALS: BP 126/81; TEMP 97.6
[2021-11-19 23:05] LABS: RPR (Rapid Plasma Reagin) NON-REACT (NON-REACT)
[2021-11-21 12:08] LABS: HBsAG Nonreactive (Nonreactive)
--- NOTE | 2021-11-22 11:02 | DS ---
Date of Discharge: 11/19/2021 Hospital Course: This is a 31-year-old, 4, para 2, at 39 weeks gestation, delivered of a 6 p ounds 12-ounce male infant with Apgars 9 and 9. No episiotomy. No laceration. Schultze delivery of the placenta, which was inspected and noted to be intact and normal. No lacerations worthy of sutur ing. Schultze delivery of the placenta at less than 250 cc blood loss. Rh positive, immune to Rubel la. Negative COVID. Negative strep. ; afebrile, ambulating, voiding. Lochia is normal. Will be dismissed sometime later this morning to report back to my office in 3-6 weeks for followup. To report any temperature elevation of 100 degrees or greater, severe pain, heavy bleeding, or any other type of abnormality. Requests no analgesics on dismissal. Is offered Tdap immunization, which she has been offered several times during the and knows if she wants a flu shot, she can d rop in my office later today or get them at the local pharmacies. Full instructions given. Final Diagnoses: Term intrauterine at 39 weeks, labor induction, vaginal delivery. Tdap o ffered as well as flu shot. THOMC/MODL Voice ID: [id number] Report ID: [id number]
== END 2021-11-19 11:30 | disposition home or self-care (01) | DRG 807 ==
LOC: 2ND-WC 04:13
PROVIDERS: ADMIT Specialist; ATTEND Specialist
PROC: 10E0XZZ Delivery of Products of Conception, External Approach (ICD-10-PCS; principal; 2021-11-18)
DX: O80 Encounter for full-term uncomplicated delivery (principal); Z37.0 Single live birth; Z3A.39 39 weeks gestation of pregnancy; Z20.822 Contact with and (suspected) exposure to COVID-19
CPT/HCPCS: 36415; 81001; 85025; 86592; 86850; 86900; 86901; 87086; 87088; 87340; 87811; J0595; J2210; J2590; J7120